=== PATIENT | female | born 1975 | race American Indian/Alaskan Native ===

== ENCOUNTER 2025-01-20 09:54 | Outpatient (AMB) | payer MEDICARE, MEDICAID, SELFPAY ==
--- NOTE | 2025-01-20 10:06 | MHC.OFFVIS ---
Vital Signs 01/20/25 10:07 Height 5 ft 5 in Weight 250 lb BMI 41.6 BP 118/80 Blood Pressure Location Rt brachial Position Sitting Respiration 16 Pulse 89 Pulse Oximetry (%) 99 Intake Visit Reasons: RE-ESTABLISH CARE - MIGRAINE Accompanied by: Spouse Allergies erythromycin base Allergy (Unknown, Verified 01/20/25 10:04) Unknown Medication List - Last Reconciled 01/20/25 by Shi Grande, FRANCI albuterol sulfate 90 mcg/actuation inhalation qehccwltcm-dxesledjfbjqc-ickm 50-325-40 mg 1 tab PO Q6H PRN 30 days cholecalciferol (vitamin D3) (Vitamin D3) 25 mcg PO DAILY clonazepam 1 mg PO TID PRN erenumab-aooe (Aimovig Autoinjector) mg subcut lisdexamfetamine (Vyvanse) 40 mg PO QAM montelukast 10 mg PO DAILY rimegepant (Nurtec ODT) mg PO HPI Comments Details: The patient is a 49-year-old female presenting with chronic migraines. The migraines occur almost daily despite the use of Aimovig 140 mg, with potential triggers including air pressure, humidity, and light. The patient reports that the migraines are less severe with Aimovig, but still frequent. She has however only been taking it for a month at this point. The patient experiences sleep disturbances, often getting only a few hours of sleep per night. She has tried various medications, including Klonopin and Nurtec, with limited success in improving sleep quality. The patient also reports tendonitis diagnosed approximately 20 years ago, which may contribute to stiffness and pain in her fingers. She mentions arthritis in her rotator cuff and possibly in her neck, which could be causing pain radiating down her arm. She is concerned about related neurological conditions as cause for her pain but has not yet addressed this with her PCP. Prior medication trials include: Imitrex has made her violently ill in the past vomiting for 3 days straight Fioricet works well Nurtec works marginally Topiramate she takes this for her moods however it does not help her headaches Amitriptyline-believe she has taken it in the past with some mood changes Propranolol-believes that she has tried this in the past but can not recall Aimovig 140 mg subcutaneous monthly injection-started 1 month ago and has had some marginal improvement Prior workup: CT head and neck 02/04/2022 impression: No acute intracranial abnormality. [facility] Medical History (Updated 01/20/25 @ 12:10 by Shi Grande CNP) Migraine Review of Systems Eyes Reports as per HPI Physical Exam Vital Signs: Last Vital Signs Pulse 89 01/20/25 10:07 Resp 16 01/20/25 10:07 BP 118/80 01/20/25 10:07 Pulse Ox 99 01/20/25 10:07 BMI result Body Mass Index 41.6 Const General: cooperative, healthy appearing, comfortable and no acute distress Nutritional Appearance: well nourished Orientation/consciousness: patient oriented x3 Limitations: no limitations HEENT Head: Yes normal to inspection and Yes normocephalic Eyes General: appearance normal, both eyes and all related structures Visual Lieberman: normal visual lieberman by confrontation Alignment and Position: alignment normal Periorbital: periorbital findings normal Eyelids: Yes eyelids normal Conjunctivae: conjunctivae normal Sclerae: sclerae normal Neck Neck: Yes normal visual inspection and Yes full ROM Neuro General: patient oriented x3 Cranial nerves: Yes CN's II-XII intact bilaterally and Yes Facial sensation intact/muscles of mastication intact Cognition (Neuro): normal cognition Gait exam (Neuro): Normal gait present Motor exam (neuro): no tremor noted Sensory Exam: double simultaneous stimulation for sensation normal Romberg Test: Negative Pupils: Normal pupillary reactivity/response: bilateral Psych Appearance: grossly normal Mental Status: mental status grossly normal Attitude: cooperative Thought process: Normal thought process present Thought content: Normal thought content present Insight: Good insight present (Psych) Judgement: Good judgement present (Psych) Assessment & Plan Assessment & Plan (1) Chronic migraine without aura without status migrainosus, not intractable: Code(s): G43.709 - Chronic migraine without aura, not intractable, without status migrainosus Category: Medical Plan: . Plan The patient is a 49-year-old female presenting with chronic migraines. She was a prior patient of mine at [facility] here today to transition her care to [facility]. At the time of our last visit at [facility], I did start her on Aimovig 140 mg monthly. She has only been taking for a month at this point though has seen some marginal improvement. We will continue for 3 months and re-evaluate. She does however wish to explore option of nerve block which we did discuss in the past. She will return in 1 month for a nerve block. In the meantime, she has Nurtec as needed for breakthrough migraine and for emergency purposes only, I did provide her with a small supply of Fioricet. Sleep has been an ongoing issue for her, I will provide her with gabapentin 300 mg nightly to assist with sleep which may also be exacerbating her headache disorder. -continue Aimovig 140 mg once monthly -Continue Nurtec 75 mg as needed for breakthrough migraine -start a trial of Fioricet for emergency purposes for breakthrough migraine (small supply given) -Start a trial of Gabapentin 300 mg for sleep/ongoing anxiety Medications: New umzagawpoz-amvjzqgzrtlzc-xgfw 50-325-40 mg No refills before 30 days 1 tab PO Q6H 30 days PRN 6 tabs 4RF pain ncsrhrnwpi-hmkgmthfwisrz-smyu 50-325-40 mg No refills before 30 days 1 tab PO Q6H PRN 8 tabs 4RF pain 30 days rimegepant (Nurtec ODT) 75 mg PO Q OTHER DAY PRN 16 tabs 5RF migraine headache 30 days Coding Level of Care Code New Pt Level 4 (44345) Diagnoses Chronic migraine without aura without status migrainosus, not intractable G43.709
[2025-01-20 10:07] VITALS: BP 118/80; PULSE 89; RESP 16; O2SAT 99; BMI 41.6
== END 2025-01-20 11:04 | disposition home or self-care (01) ==
LOC: HO.HSM 09:55
PROVIDERS: PCP Internal Medicine; Visit Provider Nurse Practitioner
DX: G43.709 Chronic migraine without aura, not intractable, without status migrainosus (principal)
CPT/HCPCS: 99214

== ENCOUNTER → 2025-01-20 09:54 | Outpatient (BNVA) | payer MEDICARE, MEDICAID, SELFPAY | PROVIDERS: PCP Internal Medicine; Visit Provider Nurse Practitioner | DX: G43.709 Chronic migraine without aura, not intractable, without status migrainosus (principal) | CPT/HCPCS: 99212 ==

== ENCOUNTER 2025-02-15 08:49 | Outpatient (AMB) | payer MEDICARE, MEDICAID, SELFPAY ==
--- NOTE | 2025-02-15 08:54 | MHC.OFFVIS ---
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 The migraines occur almost daily despite the use of Aimovig 140 mg, with potential triggers including air pressure, humidity, and light. The patient reports that the migraines are less severe with Aimovig, but still frequent. She uses Nurtec 75 mg as needed for acute therapy and when pain becomes severe she has Fioricet for emergency purposes. She uses the Fioricet sparingly and is aware of medication overuse headache. The patient experiences sleep disturbances, often getting only a few hours of sleep per night. She has tried various medications, including Klonopin and Ambien, with limited success in improving sleep quality. The patient also reports tendonitis diagnosed approximately 20 years ago, which may contribute to stiffness and pain in her fingers. She mentions arthritis in her rotator cuff and possibly in her neck, which could be causing pain radiating down her arm. She is concerned about related neurological conditions as cause for her pain but has not yet addressed this with her PCP. Teresa tells me today that recently she has been taking herself off of the topiramate prescribed for her moods because she has been experiencing some minimal memory loss. She has not noticed any difference in her headaches since weaning off. She is also on vivance and klonopin for moods. She reports that there has been no change in her migraines since her last visit as described above. The gabapentin that was prescribed at her last visit was not beneficial and she has stopped taking it. At the time of her last visit we discussed a trial of occipital nerve blocks but she does not want to go through with the injections today because she wants to do more research first. She notes that her right upper extremity pain continues and she has not yet seen her pcp to over this pain. She describes an aching sensation to the right upper extremity approximately 4 fingerbreadths under her shoulder area and stopping at the elbow. She also has pain to the forearm area as well. This pain is circumferential in both areas and does not particularly radiate from the neck down. The pain is not sharp and shooting. She does however have some numbness and tingling sensations from time to time. She denies any neck pain. She denies any substantial weakness or obvious difficulty using the extremity to carry objects etc.. Prior medication trials include: Imitrex has made her violently ill in the past vomiting for 3 days straight Fioricet works well Nurtec works marginally Topiramate she takes this for her moods however it does not help her headaches Amitriptyline-believe she has taken it in the past with some mood changes Propranolol-believes that she has tried this in the past but can not recall Aimovig 140 mg subcutaneous monthly injection-started 1 month ago and has had some marginal improvement Prior workup: CT head and neck 02/04/2022 impression: No acute intracranial abnormality. [facility] Medical History (Updated 01/20/25 @ 12:10 by Shi Grande CNP) Migraine Physical Exam Const General: cooperative, healthy appearing, comfortable and no acute distress Nutritional Appearance: well nourished Orientation/consciousness: patient oriented x3 Limitations: no limitations HEENT Head: Yes normal to inspection and Yes normocephalic Eyes General: appearance normal, both eyes and all related structures Visual Lieberman: normal visual lieberman by confrontation Alignment and Position: alignment normal Periorbital: periorbital findings normal Eyelids: Yes eyelids normal Conjunctivae: conjunctivae normal Sclerae: sclerae normal Neck Neck: Yes normal visual inspection and Yes full ROM Neuro General: patient oriented x3 Cranial nerves: Yes CN's II-XII intact bilaterally and Yes Facial sensation intact/muscles of mastication intact Cognition (Neuro): normal cognition Gait exam (Neuro): Normal gait present Motor exam (neuro): no tremor noted Sensory Exam: double simultaneous stimulation for sensation normal Romberg Test: Negative Pupils: Normal pupillary reactivity/response: bilateral Psych Appearance: grossly normal Mental Status: mental status grossly normal Attitude: cooperative Thought process: Normal thought process present Thought content: Normal thought content present Insight: Good insight present (Psych) Judgement: Good judgement present (Psych) Assessment & Plan Assessment & Plan (1) Chronic migraine without aura without status migrainosus, not intractable: Code(s): G43.709 - Chronic migraine without aura, not intractable, without status migrainosus Category: Medical Plan The patient is a 49-year-old female presenting with chronic migraines. The migraines occur almost daily despite the use of Aimovig 140 mg, with potential triggers including air pressure, humidity, and light. The patient reports that the migraines are less severe with Aimovig, but still frequent. At this time, she does not want to make any changes to her current therapy which includes Aimovig 140 mg subcutaneous monthly injections, Nurtec 75 mg as needed and in rare circumstances Fioricet for emergency purposes. We will continue the same regimen and she will consider occipital nerve blocks at time of next visit. -continue current therapy -x-ray to the right shoulder and elbow -future considerations include an EMG study to the right upper extremity if x-rays are unrevealing Coding Level of Care Code Est Pt Level 4 (88979) Diagnoses Chronic migraine without aura without status migrainosus, not intractable G43.709
[2025-02-15 09:37] VITALS: BP 138/84; PULSE 81; RESP 16; O2SAT 97; BMI 39.9
== END 2025-02-15 10:54 | disposition home or self-care (01) ==
LOC: HO.HSM 08:50
PROVIDERS: PCP Internal Medicine; Visit Provider Nurse Practitioner
DX: G43.709 Chronic migraine without aura, not intractable, without status migrainosus (principal)
CPT/HCPCS: 99214

== ENCOUNTER → 2025-02-15 08:49 | Outpatient (BNVA) | payer MEDICARE, MEDICAID, SELFPAY | PROVIDERS: PCP Internal Medicine; Visit Provider Nurse Practitioner | DX: G43.709 Chronic migraine without aura, not intractable, without status migrainosus (principal); Z79.899 Other long term (current) drug therapy | CPT/HCPCS: 99212 ==

== ENCOUNTER 2025-03-22 09:41 | Outpatient (REF) | payer MEDICARE, MEDICAID, SELFPAY ==
--- NOTE | 2025-03-22 09:45 | EMG_ITS ---
Chief complaint: pain in right upper extremity Reason for referral: M79.601 Pain in right arm Referred by: Shi Grande NP Procedure done: NCS and EMG of right upper extremity Right median and ulnar motor studies were performed. Right median and ulnar mixed sensory studies, median and lateral antecubital brachial sensory studies, and right radial sensory study was performed an EMG needle examination was performed. Findings: Median study did not reveal any significant abnormality. Ulnar study revealed mild slowing of motor conduction velocity across elbow. Otherwise no abnormality noted. Impression: Mild right ulnar neuropathy across elbow [place] [id number] [facility]
== END 2025-03-22 09:42 | disposition home or self-care (01) ==
LOC: HO.NEURO 09:41
PROVIDERS: PCP Internal Medicine; Visit Provider Nurse Practitioner
DX: M79.601 Pain in right arm (principal)
CPT/HCPCS: 95886; 95910; 99212

== ENCOUNTER 2025-03-22 10:32 | Outpatient (AMB) | payer MEDICARE, MEDICAID, SELFPAY ==
--- NOTE | 2025-03-22 10:36 | MHC.OFFVIS ---
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 The migraines occur almost daily despite the use of Aimovig 140 mg, with potential triggers including air pressure, humidity, and light. The patient reports that the migraines are less severe with Aimovig, but still frequent. She uses Nurtec 75 mg as needed for acute therapy and when pain becomes severe she has Fioricet for emergency purposes. She uses the Fioricet sparingly and is aware of medication overuse headache. The patient experiences sleep disturbances, often getting only a few hours of sleep per night. She has tried various medications, including Klonopin and Ambien, with limited success in improving sleep quality. The patient also reports tendonitis diagnosed approximately 20 years ago, which may contribute to stiffness and pain in her fingers. She mentions arthritis in her rotator cuff and possibly in her neck, which could be causing pain radiating down her arm. She is concerned about related neurological conditions as cause for her pain but has not yet addressed this with her PCP. She reports that there has been no change in her migraines since her last visit as described above. At a recent visit we had trialed gabapentin though she had no benefit with this. She recently tried her boyfriend's lyrica and felt that it worked much better for her than the gabapentin did. We have been discussing nreve blocks and trigger point injections though she has been hesitant to proceed. Her right upper extremity pain continues. She describes an aching sensation to the right upper extremity approximately 4 fingerbreadths under her shoulder area and stopping at the elbow. She also has pain to the forearm area as well. This pain is circumferential in both areas and does not particularly radiate from the neck down. The pain is not sharp and shooting. She does however have some numbness and tingling sensations from time to time. She denies any neck pain. She denies any substantial weakness or obvious difficulty using the extremity to carry objects etc.. We completed imaging studies which include x-rays of the right elbow and shoulder both of which were normal. We proceeded to an EMG study which did show:Median study did not reveal any significant abnormality. Ulnar study revealed mild slowing of motor conduction velocity across elbow. Otherwise no abnormality noted. Impression: Mild right ulnar neuropathy across elbow Prior medication trials include: Imitrex has made her violently ill in the past vomiting for 3 days straight Fioricet works well Nurtec works marginally Topiramate she takes this for her moods however it does not help her headaches Amitriptyline-believe she has taken it in the past with some mood changes Propranolol-believes that she has tried this in the past but can not recall Aimovig 140 mg subcutaneous monthly injection-started 1 month ago and has had some marginal improvement Prior workup: CT head and neck 02/04/2022 impression: No acute intracranial abnormality. [facility] Medical History (Updated 02/15/25 @ 10:53 by Shi Grande CNP) Migraine Review of Systems Const All systems reviewed & are unremarkable except as noted in HPI and below Physical Exam Vital Signs: Last Vital Signs Pulse 76 03/22/25 11:39 Resp 16 03/22/25 11:39 BP 158/88 H 03/22/25 11:39 Pulse Ox 99 03/22/25 11:39 Oxygen Delivery Method Room Air 03/22/25 11:39 BMI result Body Mass Index 39.9 Const General: cooperative, healthy appearing, comfortable and no acute distress Nutritional Appearance: well nourished Orientation/consciousness: patient oriented x3 Limitations: no limitations HEENT Head: Yes normal to inspection and Yes normocephalic Eyes General: appearance normal, both eyes and all related structures Visual Lieberman: normal visual lieberman by confrontation Alignment and Position: alignment normal Periorbital: periorbital findings normal Eyelids: Yes eyelids normal Conjunctivae: conjunctivae normal Sclerae: sclerae normal Neck Neck: Yes normal visual inspection and Yes full ROM Neuro General: patient oriented x3 Cranial nerves: Yes CN's II-XII intact bilaterally and Yes Facial sensation intact/muscles of mastication intact Cognition (Neuro): normal cognition Gait exam (Neuro): Normal gait present Motor exam (neuro): no tremor noted Sensory Exam: double simultaneous stimulation for sensation normal Romberg Test: Negative Pupils: Normal pupillary reactivity/response: bilateral Psych Appearance: grossly normal Mental Status: mental status grossly normal Attitude: cooperative Thought process: Normal thought process present Thought content: Normal thought content present Insight: Good insight present (Psych) Judgement: Good judgement present (Psych) Assessment & Plan Assessment & Plan (1) Chronic migraine without aura without status migrainosus, not intractable: Code(s): G43.709 - Chronic migraine without aura, not intractable, without status migrainosus Category: Medical Plan The patient is a 49-year-old female presenting with chronic migraines. The migraines occur almost daily despite the use of Aimovig 140 mg, with potential triggers including air pressure, humidity, and light. The patient reports that the migraines are less severe with Aimovig, but still frequent. At this time, she does not wish to proceed with nerve blocks or trigger point injections. She would like to remain on the Aimovig 140 monthly and both nurtec and fioricet for abortive measures. We did discuss sleep again and she is interested in trying lyrica for pain and discomfort that she feels impacts her sleep. We will dc the gabapentin. As for her right arm pain. The EMG did show an ulnar neuropathy across the elbow. We may consider additional imaging as the x-ray was unrevealing. PT however should be considered first. -Continue current migraine therapy -Consider PT for elbow and possibly additional imaging -DC gabapentin and start lyrica 75mg at bedtime Medications: New pregabalin (Lyrica) 75 mg PO BEDTIME 30 caps 5RF 30 days Discontinued gabapentin Discontinued Reason: Doctor's Order 300 mg PO BEDTIME 30 days 30 caps 5RF Coding Level of Care Code Est Pt Level 4 (16990) Diagnoses Chronic migraine without aura without status migrainosus, not intractable G43.709
[2025-03-22 11:39] VITALS: BP 158/88; PULSE 76; RESP 16; O2SAT 99; BMI 39.9
== END 2025-03-22 12:37 | disposition home or self-care (01) ==
LOC: HO.HSM 10:33
PROVIDERS: PCP Internal Medicine; Visit Provider Nurse Practitioner
DX: G43.709 Chronic migraine without aura, not intractable, without status migrainosus (principal)
CPT/HCPCS: 99214

== ENCOUNTER 2025-04-22 08:38 | Outpatient (AMB) | payer MEDICARE, MEDICAID, SELFPAY ==
--- NOTE | 2025-04-22 08:40 | MHC.OFFVIS ---
Vital Signs 04/22/25 09:22 Height 5 ft 5 in Weight 240 lb BMI 39.9 BP 118/72 Blood Pressure Location Lt brachial Position Sitting Respiration 16 Pulse 72 Pulse Source Pulse Oximeter Pulse Oximetry (%) 98 Oxygen Delivery Method Simple Mask Intake Visit Reasons: 1m Accompanied by: Spouse Allergies erythromycin base Allergy (Unknown, Verified 02/15/25 09:39) Unknown HPI Comments Details: Teresa is a 49-year-old female presenting with chronic migraines. The migraines occur almost daily despite the use of Aimovig 140 mg, with potential triggers including air pressure, humidity, and light. The patient reports that the migraines are less severe with Aimovig, but still frequent. She uses Nurtec 75 mg as needed for acute therapy and when pain becomes severe she has Fioricet for emergency purposes. She uses the Fioricet sparingly and is aware of medication overuse headache. The patient experiences sleep disturbances, often getting only a few hours of sleep per night. She has tried various medications, including Klonopin and Ambien, with limited success in improving sleep quality. At time of last visit I did prescribe Lyrica for generalized pain which occurs at bedtime. This was just recently approved but she has not yet started it. She reports that there has been no change in her migraines since her last visit as described above. There was some difficulty with her Aimovig injection now functioning over the last couple of attempts and therefore she brought the injection in today for me to perform. (Aimovig 140 mg pen dispensed to the right umbilical area in the subcutaneous tissue. Lot 1. [id number] expiration Oct 09 2026) We have been discussing nreve blocks and trigger point injections though she has been hesitant to proceed. Her right upper extremity pain continues. She describes an aching sensation to the right upper extremity approximately 4 fingerbreadths under her shoulder area and stopping at the elbow. She also has pain to the forearm area as well. This pain is circumferential in both areas and does not particularly radiate from the neck down. The pain is not sharp and shooting. She does however have some numbness and tingling sensations from time to time. She denies any neck pain. She denies any substantial weakness or obvious difficulty using the extremity to carry objects etc.. We completed imaging studies which include x-rays of the right elbow and shoulder both of which were normal. We proceeded to an EMG study which did show:Median study did not reveal any significant abnormality. Ulnar study revealed mild slowing of motor conduction velocity across elbow. Otherwise no abnormality noted. Impression: Mild right ulnar neuropathy across elbow At time of last visit, I did suggest an elbow brace. She has not yet purchased one. Prior medication trials include: Imitrex has made her violently ill in the past vomiting for 3 days straight Fioricet works well Nurtec works marginally Topiramate she takes this for her moods however it does not help her headaches Amitriptyline-believe she has taken it in the past with some mood changes Propranolol-believes that she has tried this in the past but can not recall Aimovig 140 mg subcutaneous monthly injection-started 1 month ago and has had some marginal improvement Prior workup: CT head and neck 02/04/2022 impression: No acute intracranial abnormality. [facility] Medical History (Updated 02/15/25 @ 10:53 by Shi Grande CNP) Migraine Review of Systems Const All systems reviewed & are unremarkable except as noted in HPI and below Physical Exam Vital Signs: Last Vital Signs Pulse 72 04/22/25 09:22 Resp 16 04/22/25 09:22 BP 118/72 04/22/25 09:22 Pulse Ox 98 04/22/25 09:22 Oxygen Delivery Method Simple Mask 04/22/25 09:22 BMI result Body Mass Index 39.9 Const General: cooperative, healthy appearing, comfortable and no acute distress Nutritional Appearance: well nourished Orientation/consciousness: patient oriented x3 Limitations: no limitations HEENT Head: Yes normal to inspection and Yes normocephalic Eyes General: appearance normal, both eyes and all related structures Visual Lieberman: normal visual lieberman by confrontation Alignment and Position: alignment normal Periorbital: periorbital findings normal Eyelids: Yes eyelids normal Conjunctivae: conjunctivae normal Sclerae: sclerae normal Neck Neck: Yes normal visual inspection and Yes full ROM Neuro General: patient oriented x3 Cranial nerves: Yes CN's II-XII intact bilaterally and Yes Facial sensation intact/muscles of mastication intact Cognition (Neuro): normal cognition Gait exam (Neuro): Normal gait present Motor exam (neuro): no tremor noted Sensory Exam: double simultaneous stimulation for sensation normal Romberg Test: Negative Pupils: Normal pupillary reactivity/response: bilateral Psych Appearance: grossly normal Mental Status: mental status grossly normal Attitude: cooperative Thought process: Normal thought process present Thought content: Normal thought content present Insight: Good insight present (Psych) Judgement: Good judgement present (Psych) Assessment & Plan Assessment & Plan (1) Chronic migraine without aura without status migrainosus, not intractable: Code(s): G43.709 - Chronic migraine without aura, not intractable, without status migrainosus Category: Medical Plan The patient is a 49-year-old female presenting with chronic migraines. The migraines occur almost daily despite the use of Aimovig 140 mg, with potential triggers including air pressure, humidity, and light. The patient reports that the migraines are less severe with Aimovig, but still frequent. At this time, she does not wish to proceed with nerve blocks or trigger point injections. She would like to remain on the Aimovig 140 monthly and both nurtec and fioricet for abortive measures. I did recently ordered Lyrica 75 mg for her for her nighttime pain. She has not yet started this as it took awhile to be approved. 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 This may also benefit her right upper extremity pain. I have also advised for a brace to the right upper extremity for elbow support given evidence of an ulnar neuropathy across the elbow. -Continue current migraine therapy (Aimovig 140 mg administered during today's visit) -Consider PT for elbow and possibly additional imaging. Brace was also recommended -Start lyrica 75mg at bedtime -Follow up in 1 month Coding Level of Care Code Est Pt Level 3 (88393) Diagnoses Chronic migraine without aura without status migrainosus, not intractable G43.709
[2025-04-22 09:22] VITALS: BP 118/72; PULSE 72; RESP 16; O2SAT 98; BMI 39.9
== END 2025-04-22 09:45 | disposition home or self-care (01) ==
LOC: HO.HSM 08:39
PROVIDERS: PCP Internal Medicine; Visit Provider Nurse Practitioner
DX: G43.709 Chronic migraine without aura, not intractable, without status migrainosus (principal)
CPT/HCPCS: 99213

== ENCOUNTER → 2025-04-22 08:38 | Outpatient (BNVA) | payer MEDICARE, MEDICAID, SELFPAY | PROVIDERS: PCP Internal Medicine; Visit Provider Nurse Practitioner | DX: G43.709 Chronic migraine without aura, not intractable, without status migrainosus (principal) | CPT/HCPCS: 99212 ==